=== PATIENT | female | born 1940 | race Caucasian/White ===

== ENCOUNTER 2019-02-04 16:55 | Emergency (ER) | payer OTHER ==
--- NOTE | 2019-02-04 17:13 | EDPHY ---
H & P Stated Complaint: Weakness Time Seen by Provider: 02/04/19 17:12 HPI/ROS: CHIEF COMPLAINT: Weakness HISTORY OF PRESENT ILLNESS: The patient presents to the ED with weakness and reportedly feeling "off." Patient has a history of hydrocephalus and has a shunt. She does have a history of chronic headaches. The patient also has remote history of urinary retention. She developed recurrent urinary retention recently and saw Urology. She was noted to have evidence of a possible urinary tract infection and was started on antibiotics 2 days ago. The patient was [facility] to her vague complaints. The patient denies fever, vomiting or flank pain. REVIEW OF SYSTEMS: A comprehensive 10 point review of systems is otherwise negative aside from elements mentioned in the history of present illness. Source: Patient Exam Limitations: No limitations - Personal History Current Tetanus/Diphtheria Vaccine: Yes Current Tetanus Diphtheria and Acellular Pertussis (TDAP): Yes - Medical/Surgical History Hx Asthma: No Hx Chronic Respiratory Disease: No Hx Diabetes: No Hx Cardiac Disease: No Hx Renal Disease: No Hx Cirrhosis: No Hx Alcoholism: No Hx HIV/AIDS: No Hx Splenectomy or Spleen Trauma: No Other PMH: hydrochephalus w/shunt - Social History Smoking Status: Never smoked - Physical Exam Exam: General Appearance: Alert, no distress Eyes: Pupils equal and round no pallor or injection ENT, Mouth: Mucous membranes moist Respiratory: There are no retractions, lungs are clear to auscultation Cardiovascular: Regular rate and rhythm Gastrointestinal: Benign abdominal examination, no CVA tenderness Neurological: 5/5 strength noted all 4 extremities, normal mentation, grossly normal cranial nerves Skin: Warm and dry, no rashes Musculoskeletal: Neck is supple nontender Extremities: symmetrical, full range of motion Psychiatric: Patient is oriented X 3, there is no agitation Constitutional: Initial Vital Signs Temperature (C) 36.5 C 02/04/19 17:01 Heart Rate 82 02/04/19 17:01 Respiratory Rate 14 02/04/19 17:01 Blood Pressure 115/71 02/04/19 17:01 O2 Sat (%) 95 02/04/19 17:01 O2 Delivery Mode Room Air Allergies/Adverse Reactions: Penicillins Allergy (Unknown, Verified 06/01/10 19:44) RASH/HIVES Sulfa (Sulfonamide Antibiotics) Allergy (Unknown, Verified 06/01/10 19:44) RASH/HIVES Medical Decision Making ED Course/Re-evaluation: Patient is nontoxic well-appearing. I detect no obvious neurologic abnormalities. She has normal mentation. She is currently on antibiotics for urinary tract infection. Her metabolic panel is within normal limits. At this point time I have recommended she continue her regular antibiotics. She is currently getting workup as an outpatient through the Urology Department. She also plans to see a neurologist for evaluation of her chronic hydrocephalus. Patient has been instructed to return to the ED for markedly worsening neurologic symptoms, severe headache or other concerns. - Data Points Laboratory Results: 02/04/19 18:02 POC Hgb 13.6 gm/dL gm/dL (12.6-16.3) POC Hct 40 % % (38-47) POC Sodium 139 mEq/L mEq/L (135-145) POC Potassium 4.4 mEq/L mEq/L (3.3-5.0) POC Chloride 104 mEq/L mEq/L (97-110) POC Total CO2 TNP POC BUN 23 mg/dL mg/dL (7-23) POC Creatinine 0.6 mg/dL mg/dL (0.6-1.0) POC Glucose 91 mg/dL mg/dL (70-100) Point of Care Test Results: Chemistry 02/04/19 18:02 POC Sodium 139 mEq/L mEq/L (135-145) POC Potassium 4.4 mEq/L mEq/L (3.3-5.0) POC Chloride 104 mEq/L mEq/L (97-110) POC Total CO2 TNP POC BUN 23 mg/dL mg/dL (7-23) POC Creatinine 0.6 mg/dL mg/dL (0.6-1.0) POC Glucose 91 mg/dL mg/dL (70-100) ISTAT H&H 02/04/19 18:02 POC Hgb 13.6 gm/dL gm/dL (12.6-16.3) POC Hct 40 % % (38-47) Departure - Departure Disposition: Home, Routine, Self-Care Clinical Impression: Urinary tract infection Condition: Good Instructions: Urinary Tract Infection in Women (ED) Additional Instructions: 1. Please follow up as recommended by urology. 2. I do recommend scheduling appointment with your primary care provider who is been a sign to you Dr. De Los Santos to review your multiple medical conditions. 3. Return to the ED for markedly worsening symptoms such as fever, vomiting, severe pain, markedly worsening neurologic conditions or other concerns. Referrals: Donna De Los Santos MD [Doctor of Osteopathy] - As per Instructions
[2019-02-04 18:31] VITALS: BP 120/73
== END 2019-02-04 18:31 | disposition home or self-care (01) ==
DX: N39.0 Urinary tract infection, site not specified (principal); Z88.0 Allergy status to penicillin; Z88.2 Allergy status to sulfonamides; Z98.2 Presence of cerebrospinal fluid drainage device
CPT/HCPCS: 82435-PO; 82565-PO; 82947-PO; 84132-PO; 84295-PO; 84520-PO; 85014-ER